=== PATIENT | female | born 1945 | race Caucasian/White ===

== ENCOUNTER 2017-12-28 08:36 | Inpatient (IN) | payer OTHER, SELFPAY ==
[2017-12-06 14:01] VITALS: BMI 51.5
[2017-12-28] VITALS (17 sets, daily range): BP systolic 92–132; BP diastolic 48–74; PULSE 67–101; RESP 8–20; TEMP 35.4–36.5; O2SAT 90–100; BMI 51.5
--- NOTE | 2017-12-28 06:00 | DI.RAD.S_ITS ---
PROCEDURE: XR KNEE RT 1TO2V INDICATIONS: prosthesis placement TECHNIQUE: 2 view(s) of the knee acquired. COMPARISON: SNO Outside Film, CR, XR KNEE 3 VIEWS RIGHT, 11/10/2017, 17:42. FINDINGS: Bones: Patient is status post knee joint arthroplasty. Hardware components are in expected positions. Visualized bony structures are intact. Soft tissues: Overlying postoperative changes are noted. IMPRESSION: Expected appearance following right knee arthroplasty. Dictated by: Betsy Pfeiffer M.D. on 12/28/2017 at 12:40 Approved by: Betsy Pfeiffer M.D. on 12/28/2017 at 12:41
[2017-12-28] MEDS: LACTATED RINGERS 1,000 ML 42 ML IV ×2 (09:23→11:42)
[2017-12-28] MEDS: CELECOXIB 200 MG CAPSULE PO (09:24)
[2017-12-28] MEDS: ACETAMINOPHEN 325 MG TABLET 975 MG PO (09:25)
[2017-12-28] MEDS: PREGABALIN 75 MG CAPSULE PO (09:25)
--- NOTE | 2017-12-28 09:28 | PM.PREOP ---
Pre-operative Note Interval Note Pre-op Check: Yes History & Physical Reviewed by Physician and Yes Exam Performed Changes: No
--- NOTE | 2017-12-28 09:28 | PM.OP.1 ---
Operative Date/Time/Diagnoses Date of procedure: 12/28/17 Time of procedure: 12:03 Pre-op diagnosis: Right knee osteoarthritis Post-op diagnosis: same Procedure & Clinicians Procedure: Right total knee arthroplasty Same procedure as scheduled: Yes Indications: The patient presents today for total knee arthroplasty after failure of conservative treatment. The nature of the procedure including the risks and benefits, alternatives, postoperative course and expected outcome were discussed and all questions answered. Consent was obtained. Operative site confirmed and marked. Surgeon: John Garvey Auto Inspector: Blas Marino Anesthesia Type: General, Spinal and Local Operative Notes Findings: Severe osteoarthritis with varus alignment. Closure Type: primary Specimen(s): none sent Implants & Drains: [employer] BCS: 4 femoral component, 3 tibial component, 10 mm BCS polyethylene tray and 29 x 9 mm round patella Applied: implant(s) Estimated Blood Loss (mL): 75 Blood products transfused: none Tourniquet time (min): 15 Procedure in detail: The patient was taken to the operative suite and placed under spinal anesthesia. The patient was given prophylactic antibiotics prior to surgery. The patient was also given tranexamic acid, 1 g, just prior to surgery for postoperative hemostasis. The lateral knee was prepped and the joint injected with 20 mL of 1% Lidocaine with epinephrine. The knee was then prepped and draped in usual sterile fashion. The leg was exsanguinated with an Esmarch dressing and the tourniquet raised to 250 torr. A 15 cm anterior incision was made. Next a medial trivector arthrotomy was made. The extensor mechanism was marked to ensure accurate repair. Initial exposing dissection was carried out medially and laterally. The knee was then extended and the patellar thickness was measured and a cut made removing approximately 9 mm of bone. The patella was then sized and drilled. Some excess lateral bone was excised and the patellofemoral ligament released. The knee was then flexed and the intramedullary femoral guide jeffrey placed. The distal femoral cut was made in 6? of valgus at the +0 position. The femoral size was measured and the appropriate cutting block was then placed and the anterior, posterior and chamfer cuts made. The extra medullary tibial alignment jeffrey was then placed along the anatomic axis of the tibia appropriating the normal slope. The guide was set to remove approximately 10 mm from the less affected lateral side. The proximal tibial cut was then made with an oscillating saw. All meniscus and bony debris was then removed. Flexion extension gaps were checked. No specific balancing was required other than routine removal of osteophytes in standard medial release. The soft tissues were then injected with a combination of 20 mL of half percent Marcaine with epinephrine and 20 mL of Exparel. The trial components were then placed. The knee went into full extension and flexion beyond 120?. There was good medial- lateral balance throughout motion with just slight increased laxity laterally both in flexion and extension. Patellar tracking was excellent. The trial components were removed and the knee was cleansed with Pulsavac irrigation and dried. The final components were cemented in with high viscosity vacuum mixed bone cement with antibiotics. The knee was held in extension and the patellar clamp until the cement had adequately cured. The knee was irrigated and inspected for any further debris. The knee was then irrigated with dilute Betadine solution. The extensor mechanism was closed with 5 interrupted #1 Vicryl sutures in 90 degrees of flexion. The joint was then injected with a combination of 1 g of tranexamic acid and 20 mL of quarter percent Marcaine with epinephrine. The subcutaneous tissue was closed with 2-0 Vicryl. The skin was closed with french and surgical adhesive. An Aquacell dressing and Kyle wrap were then applied. The patient tolerated the procedure well and was returned to recovery room in good condition. Complications: none Condition: stable Disposition: PACU Plan for aftercare: [facility] postoperative protocol for total knee arthroplasty.
[2017-12-28] MEDS: CEFAZOLIN 2 GM/100 ML FROZ.PIGGY IV ×2 (10:38→18:37)
[2017-12-28] MEDS: LIDOCAINE 1% W/EPI INJ 20 ML INJ (10:55)
[2017-12-28] MEDS: TRANEXAMIC ACID 1,000 MG VIAL 1000 MG INJ (10:59)
--- NOTE | 2017-12-28 11:08 | SUR.OPER ---
Supine on padded OR bed. Pillow under head, arms secured on padded armboards <90 degree abduction. Safety belt across torso. Non-operative leg secured with tape over blanket over lower leg. Operative leg secured in DeMayo/Aneesh positioner. Foam padded brace at thigh of operative leg.
[2017-12-28] MEDS: BUPIVACAINE 0.5% (PF) 10 ML, TRANEXAMIC ACID 1,000 MG, SODIUM CHLORIDE 0.9% 20 ML INJ (11:20)
[2017-12-28] MEDS: POVIDONE-IODINE 15 ML, SODIUM CHLORIDE 0.9% 250 ML TOP (11:20)
[2017-12-28] MEDS: BUPIVACAINE 0.5% W/ EPI (PF) 20 ML, BUPIVACAINE LIPOSOME 266 MG, SODIUM CHLORIDE 0.9% 2... INJ (11:31)
[2017-12-28] MEDS: ONDANSETRON 4 MG/2 ML INJ IV ×3 (12:56→21:32)
--- NOTE | 2017-12-28 14:00 | PC.ADMIT ---
[address], [address] Admission Note: Patient arrived from PACU at 1330 to room 204. Patient is alert and oriented. Oxygen sats 94-95% RA. Instructed to cough and deep breathe. RR 12 bpm. Sister, Marilyn, is in room. Denies pain. Numbness to feet reported from spinal, able to ankle wave with palpable pulses. Nauseated with 100 ml out of emesis after a sip of water. Instructed to avoid PO intake at this time, reports understanding. Aquacel dressing under LOPEZ wrap is C/D/I. Oriented to room and to bed/tv/call light controls. Bed alarm on. The patient,Lynda Booth,72 y/o, was given written information regarding hospital policies, unit procedures and contact persons. Patient's smoking status: Never smoker. Vital Signs - 8 hr 12/28/17 09:16 12/28/17 12:23 12/28/17 12:28 Temperature 97.1 F L 97.3 F L Pulse Rate 92 H 84 82 Respiratory Rate 18 15 10 L Blood Pressure 132/67 102/56 L 95/53 L Pulse Oximetry 93 93 92 12/28/17 12:33 12/28/17 12:38 12/28/17 12:53 Temperature Pulse Rate 79 101 H 76 Respiratory Rate 8 L 20 12 Blood Pressure 94/58 L 107/67 92/48 L Pulse Oximetry 95 90 L 96 12/28/17 13:03 12/28/17 13:18 Temperature Pulse Rate 70 68 Respiratory Rate 10 L 11 L Blood Pressure 96/50 L 95/52 L Pulse Oximetry 96 96
[2017-12-28] MEDS: METOCLOPRAMIDE 10 MG/2 ML INJ IV ×2 (14:47→19:46)
[2017-12-28] MEDS: LACTATED RINGERS 1,000 ML 125 ML IV ×2 (14:51→18:37)
--- NOTE | 2017-12-28 15:53 | PT.IPTN ---
Current Diagnoses Unilateral primary osteoarthritis, right knee (12/28/17) Surgery Performed Operation Date: 12/28/17 10:15 Actual Procedures p Total Knee Arthroplasty(Right) - John Garvey MD Physical Therapy Treatment Note M3 PT-IP Subjective Start: 12/28/17 15:52 Freq: NEEDED Status: Active Protocol: Document 12/28/17 15:52 DLM (Rec: 12/28/17 15:53 DLM [id number]) Subjective Physical Therapy Visit Type Notes Pt very nauseated and feeling dizzy when she moves her head. She does not feel ready to get up at this time. Physical Therapy Visit Comments Short Term Goals Be able to go home tomorrow with her Sister to help
[2017-12-29] VITALS (10 sets, daily range): BP systolic 95–126; BP diastolic 49–70; PULSE 73–86; RESP 16–18; TEMP 36.2–36.7; O2SAT 94–99
[2017-12-29] MEDS: CEFAZOLIN 2 GM/100 ML FROZ.PIGGY IV ×3 (03:19→19:59)
[2017-12-29] MEDS: METOCLOPRAMIDE 10 MG/2 ML INJ IV (03:39)
[2017-12-29] MEDS: LACTATED RINGERS 1,000 ML 125 ML IV (04:33)
--- NOTE | 2017-12-29 05:22 | PC.NURSE ---
Pt got up to the BSC and had n/v, ~125cc of emesis. Administered reglan. pt is now on 1L 94%. drsjanie cdi. denied pain. CMS+.
[2017-12-29] MEDS: LEVOTHYROXINE 125 MCG TABLET PO (06:33)
[2017-12-29 07:19] LABS: Hematocrit 34.6 % (36-46); Hemoglobin 11.4 g/dL (12.0-16.0)
--- NOTE | 2017-12-29 07:32 | PM.PNPO.1 ---
Subjective Date Patient Seen: 12/29/17 Time Patient Seen: 07:33 Interval history: Nausea vomiting overnight and this morning. Seems to be somewhat better over the last 3-4 hours. Patient was able to get some sleep. Denies shortness of breath or chest pain. Was able to get up with physical therapy late yesterday evening and walked around the room. Currently having minimal right knee pain. No fever chills. Exam Vital Signs (past 8 hours): - 12/29/17 04:33 Temperature 97.4 F L Pulse Rate 77 Respiratory Rate 16 Blood Pressure 126/70 Pulse Oximetry 99 Oxygen Delivery Method Nasal Cannula Oxygen Flow Rate 2 Narrative Exam Narrative: Patient resting comfortably in bed in no apparent distress. Right knee dressing is clean, dry and intact. Motor functions intact to the distal right lower extremity. Sensation grossly intact to light touch right lower extremity. Objective Labs Result Diagrams: 12/29/17 06:50 Labs: Laboratory Results - last 24 hr 12/29/17 06:50 Hgb 11.4 L Hct 34.6 L Assessment & Plan Post-op Postoperative Procedures Operation Date: 12/28/17 10:15 Actual Procedures Side Surgeon p Total Knee Arthroplasty Right John Garvey MD patient progressing as expected status post right total knee arthroplasty. Continue work on nausea. Mobilize with physical therapy. Possible discharge home later today or tomorrow. Patient does have her sister home and available to assist her upon discharge. Quality VTE Deep Vein Thrombosis/Pulmonary Embolism Present on Admission: No
[2017-12-29] MEDS: ASPIRIN EC 81 MG TABLET PO ×2 (08:25→20:00)
[2017-12-29] MEDS: ATORVASTATIN 20 MG TABLET PO (08:25)
[2017-12-29] MEDS: hydroCHLOROthiazide 25 MG TABLET 50 MG PO (08:25)
[2017-12-29] MEDS: ACETAMINOPHEN 325 MG TABLET 975 MG PO ×3 (08:25→20:00)
--- NOTE | 2017-12-29 09:09 | CM.IDA ---
Addendum entered by ANN Ying 12/29/17 15:35: Met w/pt this afternoon w/her sister Marilyn at bedside, permission given to continue. Pt went into great detail about her post operative course and stated she would be able to return home w/assist from her sister (who lives next door) once her pain was better managed. Marilyn agrees pt will be safe and all DME in place. Following closely in case needs change or concerns arise. PT: Home w/bariatric equipment and sister to assist. BENSON Original Note: Addendum entered by ANN Ying 12/29/17 12:05: Attempted assessment, PT trying to get pt up. Chart indicates pt is 5'4, 300 pounds. Progress could be slow, following closely. Original Note: PT Pending today. Following Closely. ANN Ying Discharge Planning/Care Management CM Discharge Assessment Start: 12/29/17 08:54 Freq: Status: Active Protocol: Document 12/29/17 08:55 BENSON (Rec: 12/29/17 09:09 BENSON [id number]) Discharge Planning Assessment Assigned Rotary Drier Feeder ANN Sin DPOA/Assigned Designee Name sister Campos Contact Information [phone] Advance Directives? No Advance Directives on File No History Provided By Patient Medical Record Prior Living Arrangements Apartment/Condo Household Members none Type of transporation used prior to Drives own vehicle admit Independent with ADL's Yes Is patient alert and oriented? Yes Comment All needed for safe DC home Patient/Family Preference OP PT Therapy OP OT Therapy Barriers to Discharge No Comment [place] path, home w/sister, likely today. Discharge Plan Home Transportation Arrangement Family Referrals Initiated None needed Additional Comment This UNIT EDUCATOR availble if DC needs or questions arise today, or if DC plan changes. Whiteboard Updated in Patient Room with Yes name and ext. # of Rotary Drier Feeder Review Status In Process
--- NOTE | 2017-12-29 12:47 | PT.IIE ---
Current Diagnoses Unilateral primary osteoarthritis, right knee (12/28/17) Surgery Performed Operation Date: 12/28/17 10:15 Actual Procedures p Total Knee Arthroplasty(Right) - John Garvey MD Surgical History (Last Updated 12/06/17 @ 14:25 by Hanh Landry, RN) History of mandibular surgery (Acute) Hx of breast augmentation (Acute) Hx of tubal ligation (Acute) Medical History (Last Updated 12/06/17 @ 14:27 by Hanh Landry RN) Easy bruisability (Acute) Edema (Acute) Esophageal spasm (Acute) HTN (hypertension) (Acute) Hyperlipidemia (Acute) Hypothyroidism (Acute) Keratosis (Acute) Laceration of thumb, left, with tendon involvement (Acute) Pneumonia (Acute) Elk teeth removed (Acute) Physical Therapy Inpatient Evaluation/Re-Eval M1 PT/OT-IP Prior Functional Status Start: 12/28/17 15:52 Freq: NEEDED Status: Active Protocol: Document 12/29/17 12:22 IJS (Rec: 12/29/17 12:47 IJS [id number]) Medical Review Prior Functional Status Medical History Reviewed Yes Diet/Fluid Consistency Regular Communication WNL Mobility and Gait Independent, uses cane or crutches to manage her knee pain, ambulates community distances Activities of Daily Living and IADL's Independent Prior Functional Level (Other details) Her Sister plans to help her after surgery Social History Household Members none Living Arrangements Apartment/Condo Home Environment Standard Height Toilet Home Equipment Front Wheel Walker Straight Cane Employment Status Retired Additional Social History Comment Plans to have daughter there at time of discharge. Also uses a rolling chair to mobilize in the home when her left hip or chronic low back is too painful. M2 PT-IP Current Condition Start: 12/28/17 15:52 Freq: NEEDED Status: Active Protocol: Document 12/29/17 12:22 IJS (Rec: 12/29/17 12:47 IJS [id number]) Physical Therapy Current Condition Current Condition Evaluation Date 12/29/17 Treatment Diagnosis Walking/gait disturbance Onset Date 12/28/17 Weight Bearing Status Weight Bearing Status Weight Bear as Tolerated M3 PT-IP Subjective Start: 12/28/17 15:52 Freq: NEEDED Status: Active Protocol: Document 12/29/17 12:22 IJS (Rec: 12/29/17 12:47 IJS [id number]) Subjective Physical Therapy Visit Type Type Initial Evaluation Visit Start Time 10:30 Visit Stop Time 11:10 Total Visit Minutes 40 Number of FRONT END ENGINEER Visits 0 Physical Therapy Visit Comments Patient Comments Has had motion sickness all her life and feels because she has not been as active that is why she is having trouble with nausia and woozy head. Patient Goals Return home with daughter and has scheduled outpatient appointments. Goal to get back to use of single point cane. Therapy Pain Assessment Pain When Pain Assessed During Mobility Pain Present Pain Present Pain Reported Location Back Intensity 8 Description With Movement Pain Behaviors Wincing Pain Management Techniques Apply Cold M4 PT-IP Mobility and Gait Start: 12/28/17 15:52 Freq: NEEDED Status: Active Protocol: Document 12/29/17 12:22 IJS (Rec: 12/29/17 12:47 IJ [id number]) PT-Bed Mobility Assessment Rolling Type of Rolling Roll to Left Level of Assist Standby Assistance Supine to Sit Supine to Sit Contact Guard Assistance Scooting Scooting to Edge of Bed Standby Assistance PT-Transfer Assessment Sit to and From Stand Sit to and from Stand Contact Guard Assistance Equipment Transfer Assistive Device Gait Belt Front Wheeled Walker Transfers Transfer Destination Bed Transfer Technique Stand Step Pivot Transfer Ability Level of Assist Contact Guard Assistance Comments Mobility Comments She had a borrowed standard FWW but she needs a wide bariatric walker. She will need one to go home so will need to get an order. Walked from bed to the bathroom then was a little woozy sat in recliner. I went and got a bariatric walker and took 3-4 steps forward and back with better pain control and posture. Gait Assessment Gait Gait Assistance Required: Contact Guard Assist Distance (Feet) 10 Able to Maintain Weight Bearing Status Yes During Gait Assistive Devices Assistive Device Gait Belt Front Wheeled Walker Orthotic/Prosthetic Devices or Brace: No Gait Deviations General Gait Pattern Antalgic Factors Limiting Gait Function Factors Limiting Gait Function Limited Range of Motion Pain Comments Gait Comments Did much better and felt more secure with larger walker. PT-Balance Assessment Sitting Balance and Reactions Static Sitting Balance Ability Normal Dynamic Sitting Balance Ability Normal Standing Balance and Reactions Static Standing Balance Ability Good Dynamic Standing Balance Ability Good M5 PT-IP Objective Assessments Start: 12/28/17 15:52 Freq: NEEDED Status: Active Protocol: Document 12/29/17 12:22 IJS (Rec: 12/29/17 12:47 [facility] [id number]) Orientation Orientation/Cognition Level of Alertness Alert Orientation Name Age Birthday Month Date Year Day of Week Place Situation Language Function Ability No Deficits Noted Safety Awareness Understands Safety Issues Memory Description No Deficits Noted Gross Range of Motion Upper Extremity ROM Assessment Within Functional Limits Lower Extremity ROM Assessment Right Impaired Impairments Full extension but lacking flexion as expected. 0 - 80 deg. supine. Strength Upper Extremity Strength Assessment Within Functional Limits Lower Extremity Strength Assessment Right Impaired Knee 4/5 Comments Strength Comments Good quad set, able to do TKE' s, abduction/adduction supine. Coordination Assessment Gross Coordination Gross Coordination WNL Sensation Assessment Sensation Gross Sensation WNL Light Touch Intact Proprioception (Position) Intact Muscle Tone Muscle Tone WNL Yes M6 PT-IP Treatment Start: 12/28/17 15:52 Freq: NEEDED Status: Active Protocol: Document 12/29/17 12:22 IJS (Rec: 12/29/17 12:47 [facility] [id number]) Physical Therapy Treatment Exercises Exercises Ankle Pumps Gluteal Sets Heel Slides Supine Hip Abduction Short Arc Quads Knee ROM Measurement 0 - 80 deg right Education Education Provided Post-Op Packet Equipment Issued Equipment Type and Company Will need wide bariatric walker. M7 PT-IP Assessment and Plan Start: 12/28/17 15:52 Freq: NEEDED Status: Active Protocol: Document 12/29/17 12:22 IJS (Rec: 12/29/17 12:47 [facility] [id number]) PT Summary Assessment and Plan Potential Rehabilitation Potential Good Status of Condition at Evaluation Stable Summary Impairments Pain ROM Strength Assessment Summary POD #1 doing well with mobility. Low blood pressure this a.m. and checked before treatment with supine 102/53, sitting at edge of bed 132/71. Some nausia after treatment but did not vomit. Head of bed up 30 deg. when got up. Goals Bed Mobility Goal Independent Transfer Goal Standby Assistance Gait Goal Standby Assistance Gait Distance 100' Days to Meet Goals 2 Frequency of Treatment Frequency Of Treatment Twice a Day Treatment Plan Physical Therapy Treatment Plan Bed Mobility Training Transfer Training Gait Training Therapeutic Exercise Recommendations To Nursing Amount of Assist Needed 1 Person Assist Discharge Recommendations PT Discharge Recommendations Home Equipment Needed for Home Before Wide bariateric walker 5'4 Discharge and 300#.
[2017-12-29] MEDS: INFLUENZA VACCINE 0.5 ML SYRINGE IM (14:39)
--- NOTE | 2017-12-29 15:55 | PT.IPTN ---
Current Diagnoses Unilateral primary osteoarthritis, right knee (12/28/17) Surgery Performed Operation Date: 12/28/17 10:15 Actual Procedures p Total Knee Arthroplasty(Right) - John Garvey MD Physical Therapy Treatment Note M2 PT-IP Current Condition Start: 12/28/17 15:52 Freq: NEEDED Status: Active Protocol: Document 12/29/17 15:55 [facility] (Rec: 12/29/17 17:36 [facility] [id number]) Physical Therapy Current Condition Current Condition Evaluation Date 12/29/17 Treatment Diagnosis Walking/gait disturbance Onset Date 12/28/17 Weight Bearing Status Weight Bearing Status Weight Bear as Tolerated M3 PT-IP Subjective Start: 12/28/17 15:52 Freq: NEEDED Status: Active Protocol: Document 12/29/17 15:55 RCC (Rec: 12/29/17 17:36 [facility] [email or web address]) Subjective Physical Therapy Visit Type Type Treatment Note Visit Start Time 15:30 Visit Stop Time 15:55 Total Visit Minutes 25 Number of SHIRT FOLDER Visits 0 Physical Therapy Visit Comments Patient Comments pt notes that she is feeling a little better, would like to walk farther. M4 PT-IP Mobility and Gait Start: 12/28/17 15:52 Freq: NEEDED Status: Active Protocol: Document 12/29/17 15:55 RCC (Rec: 12/29/17 17:36 [facility] [id number]) PT-Bed Mobility Assessment Supine to Sit Supine to Sit Minimal Assistance 1 Person Assistance Sit to Supine Sit to Supine Standby Assistance Scooting Scooting to Edge of Bed Minimal Assistance PT-Transfer Assessment Sit to and From Stand Sit to and from Stand Contact Guard Assistance Equipment Transfer Assistive Device Gait Belt Front Wheeled Walker Transfers Transfer Destination Bed Transfer Technique Stand Step Pivot Transfer Ability Level of Assist Contact Guard Assistance Gait Assessment Gait Gait Assistance Required: Standby Assistance Distance (Feet) 25 Assistive Devices Assistive Device Gait Belt Front Wheeled Walker Gait Deviations General Gait Pattern Antalgic Decreased Stride Length Decreased Feet Clearance Factors Limiting Gait Function Factors Limiting Gait Function Decreased Activity Tolerance Decreased Strength Pain Comments Gait Comments bariatric FWW M5 PT-IP Objective Assessments Start: 12/28/17 15:52 Freq: NEEDED Status: Active Protocol: Document 12/29/17 12:22 IJS (Rec: 12/29/17 12:47 IJS [id number]) Orientation Orientation/Cognition Level of Alertness Alert Orientation Name Age Birthday Month Date Year Day of Week Place Situation Language Function Ability No Deficits Noted Safety Awareness Understands Safety Issues Memory Description No Deficits Noted Gross Range of Motion Upper Extremity ROM Assessment Within Functional Limits Lower Extremity ROM Assessment Right Impaired Impairments Full extension but lacking flexion as expected. 0 - 80 deg. supine. Strength Upper Extremity Strength Assessment Within Functional Limits Lower Extremity Strength Assessment Right Impaired Knee 4/5 Comments Strength Comments Good quad set, able to do TKE' s, abduction/adduction supine. Coordination Assessment Gross Coordination Gross Coordination WNL Sensation Assessment Sensation Gross Sensation WNL Light Touch Intact Proprioception (Position) Intact Muscle Tone Muscle Tone WNL Yes M6 PT-IP Treatment Start: 12/28/17 15:52 Freq: NEEDED Status: Active Protocol: Document 12/29/17 15:55 RCC (Rec: 12/29/17 17:36 [facility] [id number]) Physical Therapy Treatment Exercises Exercises Seated Knee Flexion/Extension M7 PT-IP Assessment and Plan Start: 12/28/17 15:52 Freq: NEEDED Status: Active Protocol: Document 12/29/17 15:55 RCC (Rec: 12/29/17 17:36 [facility] [id number]) PT Summary Assessment and Plan Summary Progress Towards Goals Progressing Toward Goals Assessment Summary Pt able to progress gait distance to 25 ft. She requires min assist for RLE management getting out of bed. Expect pt to continue to progress, but likely d/c on due to this date being first day of mobility for pt. She will require stair training prior to d/c. Goals Bed Mobility Goal Independent Transfer Goal Standby Assistance Gait Goal Standby Assistance Gait Distance 100' Days to Meet Goals 2 Frequency of Treatment Frequency Of Treatment Twice a Day Treatment Plan Physical Therapy Treatment Plan Bed Mobility Training Transfer Training Gait Training Therapeutic Exercise Other Recommendations and Next Treatment prog. gait, stair training Focus Recommendations To Nursing Amount of Assist Needed 1 Person Assist Discharge Recommendations PT Discharge Recommendations Home with Assistance Equipment Needed for Home Before [facility] walker 5'4 Discharge and 300#.
[2017-12-29] MEDS: IBUPROFEN 600 MG TABLET PO (17:20)
[2017-12-29] MEDS: OXYCODONE IR 5 MG TABLET PO (21:28)
[2017-12-30 00:06] VITALS: BP 123/52; PULSE 87; RESP 18; TEMP 36.7; O2SAT 92
[2017-12-30] MEDS: CEFAZOLIN 2 GM/100 ML FROZ.PIGGY IV (03:24)
[2017-12-30] MEDS: IBUPROFEN 600 MG TABLET PO (04:27)
[2017-12-30 04:39] VITALS: BP 136/67; PULSE 82; RESP 18; TEMP 36.6; O2SAT 95
[2017-12-30] MEDS: LEVOTHYROXINE 125 MCG TABLET PO (06:41)
[2017-12-30 07:00] VITALS: BP 121/69; PULSE 83; RESP 16; TEMP 36.8; O2SAT 96
--- NOTE | 2017-12-30 08:05 | PM.PNPO.1 ---
Subjective Date Patient Seen: 12/30/17 Time Patient Seen: 08:05 Interval history: Patient is postop day 2 status post right total knee replacement by Dr. Garvey. Patient says today the nausea has gotten better. She was able to eat a full meal yesterday. Has not ambulated much with physical therapy she still having a hard time getting in and out of bed due to her size. Has not had a bowel movement yet. Has more pain in the knee today. Feels she is not ready to go home yet. Exam Vital Signs (past 8 hours): - 12/30/17 00:06 12/30/17 04:39 Temperature 98.1 F 97.9 F Pulse Rate 87 82 Respiratory Rate 18 18 Blood Pressure 123/52 L 136/67 Pulse Oximetry 92 95 Fraction of Inspired Oxygen 21 Oxygen Delivery Method Room Air Oxygen Flow Rate 0 Narrative Exam Narrative: Patient in bed. Appears comfortable. Alert and orient x3. Right knee dressing clean dry and intact with an Kyle bandage over wrapped. 5/5 right ankle strength. Bilateral calf soft and nontender. Neurovascular status intact Objective Labs Result Diagrams: 12/29/17 06:50 Assessment & Plan Post-op Postoperative Procedures Operation Date: 12/28/17 10:15 Actual Procedures Side Surgeon p Total Knee Arthroplasty Right John Garvey MD Postop day 2. Patient is slow to ambulate. She did lose 1 day of physical therapy due to nausea postop day 1. Patient will work with Physical therapy today and getting in and out of bed safely. Stool softeners, MiraLax and milk of Mag are ordered for her to help with her constipation. Continue pain medication as needed. Any continue DVT prophylaxis with aspirin. Discharged home tomorrow. Quality VTE Deep Vein Thrombosis/Pulmonary Embolism Present on Admission: No
[2017-12-30] MEDS: ACETAMINOPHEN 325 MG TABLET 975 MG PO ×3 (08:13→22:18)
[2017-12-30] MEDS: ASPIRIN EC 81 MG TABLET PO ×2 (08:13→22:17)
[2017-12-30] MEDS: LISINOPRIL 10 MG TABLET PO (08:13)
[2017-12-30] MEDS: hydroCHLOROthiazide 25 MG TABLET 50 MG PO (08:13)
[2017-12-30] MEDS: ATORVASTATIN 20 MG TABLET PO (08:14)
[2017-12-30] MEDS: DOCUSATE 100 MG CAPSULE PO (08:33)
--- NOTE | 2017-12-30 10:24 | PC.NURSE ---
Pt reports pain controlled while lying in bed LOPEZ wrap removed and pt reports increased comfort as she felt it was too tight. Aquacel dressing CDI. Using IS as instructed. IV removed and pt taking percolone for pain control.
--- NOTE | 2017-12-30 11:55 | PT.IPTN ---
Current Diagnoses Unilateral primary osteoarthritis, right knee (12/28/17) Surgery Performed Operation Date: 12/28/17 10:15 Actual Procedures p Total Knee Arthroplasty(Right) - John Garvey MD Physical Therapy Treatment Note M2 PT-IP Current Condition Start: 12/28/17 15:52 Freq: NEEDED Status: Active Protocol: Document 12/29/17 15:55 RCC (Rec: 12/29/17 17:36 RCC [email or web address]) Physical Therapy Current Condition Current Condition Evaluation Date 12/29/17 Treatment Diagnosis Walking/gait disturbance Onset Date 12/28/17 Weight Bearing Status Weight Bearing Status Weight Bear as Tolerated M3 PT-IP Subjective Start: 12/28/17 15:52 Freq: NEEDED Status: Active Protocol: Document 12/30/17 11:50 GGD (Rec: 12/30/17 12:43 GGD [id number]) Subjective Physical Therapy Visit Type Type Treatment Note Visit Start Time 11:25 Visit Stop Time 11:50 Total Visit Minutes 25 Number of COLOR CHECKER Visits 1 Physical Therapy Visit Comments Patient Comments Pt states that she would like to get up and walk. Therapy Pain Assessment Pain When Pain Assessed At Rest Pain Present Pain Present Pain Reported Location Back Intensity 3 Scale Used Numeric (1 - 10) M4 PT-IP Mobility and Gait Start: 12/28/17 15:52 Freq: NEEDED Status: Active Protocol: Document 12/30/17 11:50 GGD (Rec: 12/30/17 12:43 GGD [id number]) PT-Bed Mobility Assessment Supine to Sit Supine to Sit Contact Guard Assistance 1 Person Assistance Bedrails Scooting Scooting to Edge of Bed Contact Guard Assistance PT-Transfer Assessment Sit to and From Stand Sit to and from Stand Contact Guard Assistance Equipment Transfer Assistive Device Gait Belt Front Wheeled Walker Transfers Transfer Destination Chair Toilet Gait Assessment Gait Gait Assistance Required: Standby Assistance Distance (Feet) 100 Assistive Devices Assistive Device Gait Belt Front Wheeled Walker Gait Deviations General Gait Pattern Antalgic Decreased Stride Length Decreased Feet Clearance Factors Limiting Gait Function Factors Limiting Gait Function Decreased Activity Tolerance Decreased Strength Pain Comments Gait Comments bariatric FWW M5 PT-IP Objective Assessments Start: 12/28/17 15:52 Freq: NEEDED Status: Active Protocol: Document 12/29/17 12:22 IJS (Rec: 12/29/17 12:47 IJS [id number]) Orientation Orientation/Cognition Level of Alertness Alert Orientation Name Age Birthday Month Date Year Day of Week Place Situation Language Function Ability No Deficits Noted Safety Awareness Understands Safety Issues Memory Description No Deficits Noted Gross Range of Motion Upper Extremity ROM Assessment Within Functional Limits Lower Extremity ROM Assessment Right Impaired Impairments Full extension but lacking flexion as expected. 0 - 80 deg. supine. Strength Upper Extremity Strength Assessment Within Functional Limits Lower Extremity Strength Assessment Right Impaired Knee 4/5 Comments Strength Comments Good quad set, able to do TKE' s, abduction/adduction supine. Coordination Assessment Gross Coordination Gross Coordination WNL Sensation Assessment Sensation Gross Sensation WNL Light Touch Intact Proprioception (Position) Intact Muscle Tone Muscle Tone WNL Yes M6 PT-IP Treatment Start: 12/28/17 15:52 Freq: NEEDED Status: Active Protocol: Document 12/30/17 11:50 GGD (Rec: 12/30/17 12:43 GGD [id number]) Physical Therapy Treatment Exercises Exercises Ankle Pumps Quad Sets Heel Slides Seated Knee Flexion/Extension Education Education Provided Safety M7 PT-IP Assessment and Plan Start: 12/28/17 15:52 Freq: NEEDED Status: Active Protocol: Document 12/30/17 11:50 GGD (Rec: 12/30/17 12:43 GGD [id number]) PT Summary Assessment and Plan Summary Assessment Summary Pt improving with mobility. she was able to progress gait. She was needed less assitst with bed mobility. Frequency of Treatment Frequency Of Treatment Twice a Day Treatment Plan Other Recommendations and Next Treatment prog. gait, stair training Focus Discharge Recommendations PT Discharge Recommendations Home with Assistance Equipment Needed for Home Before [facility] walker 5'4 Discharge and 300#.
--- NOTE | 2017-12-30 13:45 | PC.NURSE ---
Pt reported chest pain at 1300. EKG performed showing NAD. Pt given maalox which he reported had a good effect with chest pain/epigastric pain diminishing. Pt in no distress. States I think it was indigestion. I am not used to eating this kind of food. VSS.
[2017-12-30] MEDS: OXYCODONE IR 5 MG TABLET PO ×2 (13:57→22:18)
--- NOTE | 2017-12-30 15:20 | PT.IPTN ---
Current Diagnoses Unilateral primary osteoarthritis, right knee (12/28/17) Surgery Performed Operation Date: 12/28/17 10:15 Actual Procedures p Total Knee Arthroplasty(Right) - John Garvey MD Physical Therapy Treatment Note M2 PT-IP Current Condition Start: 12/28/17 15:52 Freq: NEEDED Status: Active Protocol: Document 12/29/17 15:55 RCC (Rec: 12/29/17 17:36 RCC [email or web address]) Physical Therapy Current Condition Current Condition Evaluation Date 12/29/17 Treatment Diagnosis Walking/gait disturbance Onset Date 12/28/17 Weight Bearing Status Weight Bearing Status Weight Bear as Tolerated M3 PT-IP Subjective Start: 12/28/17 15:52 Freq: NEEDED Status: Active Protocol: Document 12/30/17 15:20 GGD (Rec: 12/30/17 16:27 GGD [email or web address]) Subjective Physical Therapy Visit Type Type Treatment Note Visit Start Time 14:45 Visit Stop Time 15:20 Total Visit Minutes 35 Number of SCHOOL LUNCH MANAGER Visits 2 Physical Therapy Visit Comments Patient Comments Pt is willing to work with PT. Therapy Pain Assessment Pain When Pain Assessed At Rest Pain Present Pain Present Pain Reported Location Back Intensity 1 Scale Used Numeric (1 - 10) M4 PT-IP Mobility and Gait Start: 12/28/17 15:52 Freq: NEEDED Status: Active Protocol: Document 12/30/17 15:20 GGD (Rec: 12/30/17 16:27 GGD [email or web address]) PT-Bed Mobility Assessment Supine to Sit Supine to Sit Standby Assistance 1 Person Assistance Bedrails Sit to Supine Sit to Supine Standby Assistance Scooting Scooting to Edge of Bed Standby Assistance PT-Transfer Assessment Sit to and From Stand Sit to and from Stand Contact Guard Assistance Equipment Transfer Assistive Device Gait Belt Front Wheeled Walker Transfers Transfer Destination Bed Gait Assessment Gait Gait Assistance Required: Standby Assistance Distance (Feet) 80 Assistive Devices Assistive Device Gait Belt Front Wheeled Walker Gait Deviations General Gait Pattern Antalgic Decreased Stride Length Decreased Feet Clearance Factors Limiting Gait Function Factors Limiting Gait Function Decreased Activity Tolerance Decreased Strength Pain Comments Gait Comments bariatric FWW Stair Climbing Assessment Evaluation Level of Assist On Stairs Contact Guard Assistance Devices Stair Climbing Assistive Devices Left Railing Right Railing Technique/Endurance Stair Climbing Direction Ascend and Descend Stair Climbing Technique Step to Step Number of Steps Climbed 3 Query Text: Stair Climbing Set # Repetitions (reps) 1 M5 PT-IP Objective Assessments Start: 12/28/17 15:52 Freq: NEEDED Status: Active Protocol: Document 12/29/17 12:22 IJS (Rec: 12/29/17 12:47 IJS [id number]) Orientation Orientation/Cognition Level of Alertness Alert Orientation Name Age Birthday Month Date Year Day of Week Place Situation Language Function Ability No Deficits Noted Safety Awareness Understands Safety Issues Memory Description No Deficits Noted Gross Range of Motion Upper Extremity ROM Assessment Within Functional Limits Lower Extremity ROM Assessment Right Impaired Impairments Full extension but lacking flexion as expected. 0 - 80 deg. supine. Strength Upper Extremity Strength Assessment Within Functional Limits Lower Extremity Strength Assessment Right Impaired Knee 4/5 Comments Strength Comments Good quad set, able to do TKE' s, abduction/adduction supine. Coordination Assessment Gross Coordination Gross Coordination WNL Sensation Assessment Sensation Gross Sensation WNL Light Touch Intact Proprioception (Position) Intact Muscle Tone Muscle Tone WNL Yes M6 PT-IP Treatment Start: 12/28/17 15:52 Freq: NEEDED Status: Active Protocol: Document 12/30/17 15:20 GGD (Rec: 12/30/17 16:27 GGD [email or web address]) Physical Therapy Treatment Exercises Exercises Ankle Pumps Quad Sets Heel Slides Straight Leg Raises Education Education Provided Safety M7 PT-IP Assessment and Plan Start: 12/28/17 15:52 Freq: NEEDED Status: Active Protocol: Document 12/30/17 15:20 GGD (Rec: 12/30/17 16:27 GGD [email or web address]) PT Summary Assessment and Plan Summary Assessment Summary Pt improve slowly with mobility. She needed less assist with bed mobility. She was safe with stairs, but needed to pull with UE. She needed less cues for gait. Frequency of Treatment Frequency Of Treatment Twice a Day Treatment Plan Physical Therapy Treatment Plan Bed Mobility Training Transfer Training Gait Training Therapeutic Exercise Other Recommendations and Next Treatment prog. gait, stair training Focus Recommendations To Nursing Amount of Assist Needed 1 Person Assist Discharge Recommendations PT Discharge Recommendations Home with Assistance Equipment Needed for Home Before Wide bariateric walker 5'4 Discharge and 300#.
[2017-12-30 16:10] VITALS: BP 105/50; PULSE 82; RESP 20; TEMP 36.7; O2SAT 97
[2017-12-30 20:40] VITALS: BP 118/55; PULSE 80; RESP 16; TEMP 36.4; O2SAT 96
[2017-12-31] MEDS: ACETAMINOPHEN 325 MG TABLET 975 MG PO (05:06)
[2017-12-31] MEDS: OXYCODONE IR 5 MG TABLET PO (05:06)
[2017-12-31] MEDS: LEVOTHYROXINE 125 MCG TABLET PO (05:06)
[2017-12-31 05:10] VITALS: BP 112/67; PULSE 86; RESP 18; TEMP 36.8; O2SAT 93
[2017-12-31 07:45] VITALS: BP 109/51; PULSE 84; RESP 16; TEMP 36.8; O2SAT 96
[2017-12-31] MEDS: ATORVASTATIN 20 MG TABLET PO (09:07)
[2017-12-31] MEDS: ASPIRIN EC 81 MG TABLET PO (09:07)
[2017-12-31] MEDS: hydroCHLOROthiazide 25 MG TABLET 50 MG PO (09:07)
[2017-12-31] MEDS: LISINOPRIL 10 MG TABLET PO (09:08)
--- NOTE | 2017-12-31 09:09 | PM.DS.1 ---
History of Present Illness Date Patient Seen: 12/31/17 Time Patient Seen: 09:09 Chief complaint: [id number] Narrative: Details of the patient's H& P can be found in the electronic chart. Discharge Providers Date of admission: 12/28/17 08:36 Primary care physician: Tracy Johnson MD Consults: 12/28/17 13:40 Consult to Discharge Planning Routine Comment: Consult to Physical Therapy Evaluate & Treat Comment: Physician Instructions: postop TKA protocol Consult to Respiratory Therapy Evaluate & Treat Comment: Physician Instructions: Evaluate and treat 12/28/17 13:48 Consult to Respiratory Therapy Evaluate & Treat Comment: Physician Instructions: Evaluate and treat 12/30/17 14:06 Consult to Physical Therapy Evaluate & Treat Comment: Physician Instructions: Wide Bariateric FWW for home use Discharge provider: Sarah Demarco PA-C Summary Discharge Diagnosis: Right knee osteoarthritis Hospital Course: Patient was admitted and taken the operating room and she had a right total knee arthroplasty by Dr. Garvey. She recovered well as transfer to the floor for further care. Postop day 1 patient was having a lot of nausea. Postop day 2 nausea had resolved but the patient was slow to ambulate and had not had a bowel movement. By postop day 3 patient was ambulating well, not having nausea, able to have a bowel movement, eating and drinking well, urinating without difficulty. She was having a lot of right lower extremity swelling and a venous Doppler was performed which came back negative for any deep vein thrombosis. She was discharged home. She is a [facility] patient and has her discharge medications are ready. She will follow up in office next week. Status at Discharge Cognitive/behavioral status at discharge: Alert and orient x3 Functional status at discharge: uses cane/walker Time Spent with Patient Less than 30 minutes Exam Vital Signs (past 8 hours): - 12/31/17 05:10 12/31/17 07:45 Temperature 98.2 F 98.3 F Pulse Rate 86 84 Respiratory Rate 18 16 Blood Pressure 112/67 109/51 L Pulse Oximetry 93 96 Fraction of Inspired Oxygen 21 Oxygen Delivery Method Room Air Oxygen Flow Rate 0 Narrative Exam Narrative: Patient getting into bed. Alert and orient x3. Appears comfortable. Right knee with moderate swelling. Right calf swollen with ecchymosis behind calf. Discomfort with compression of the right calf. 5/5 right ankle strength. Left calf soft and nontender. Right knee dressing with 1 spot of dried blood. Objective Imaging Venous US: Radiologist's impression: [address] [address] Ultrasound Report Signed Patient: Lynda BoothMR#: [id number] : 4Acct:[id number] Age/Sex: 72 / FDate of Service: 12/31/17 Loc: HS886-2 Accession Number: [id number] Procedure: US periph venous low extrem rt Ordering Provider: Sarah Demarco P.A-C PROCEDURE: US PERIPH VENOUS LOW EXTREM RT INDICATIONS: POST OP EDEMA TECHNIQUE: Real-time imaging, as well as color and pulse Doppler interrogation, were performed of the lower extremity deep veins from the inguinal ligament to the popliteal fossa. COMPARISON: None. FINDINGS: The deep veins are normally compressible, and free of intraluminal thrombus. Color and pulse Doppler demonstrate normal phasic intraluminal flow. There is normal augmentation response to distal compression maneuver. IMPRESSION: No DVT in the right lower extremity. Dictated by: Gillian Tucker M.D. on 12/31/2017 at 11:04 Approved by: Gillian Tucker M.D. on 12/31/2017 at 11:04 Labs Result Diagrams: 12/29/17 06:50 Discharge Plan Discharge Plan Patient Disposition: Home Discharge comment: Start physical therapy. Continue home exercises. Stool softeners and fiber to help with constipation. Elevation of the leg to help with lower leg swelling. Discharge Med Rec/Prescriptions Prescriptions: New acetaminophen 325 mg Tablet 975 mg PO TID Qty: 60 RF: 0 aspirin 81 mg Tablet,Delayed Release (Dr/Ec) 81 mg PO BID Qty: 60 RF: 0 ibuprofen 600 mg Tablet 600 mg PO Q6HR PRN (Reason: As Needed For Fever/Mild Pain) Qty: 0 RF: 0 oxycodone 5 mg Tablet 5 mg PO Q3HR PRN (Reason: Pain, Moderate (4-6)) Qty: 0 RF: 0 Continue atorvastatin 20 mg Tablet 20 mg PO QAM RF: 0 hydrochlorothiazide 50 mg Tablet 50 mg PO DAILY RF: 0 famotidine [Pepcid AC] 20 mg Tablet 20 mg PO DAILY PRN (Reason: gi upset) RF: 0 lisinopril 10 mg Tablet 10 mg PO DAILY RF: 0 levothyroxine 125 mcg Capsule 125 mcg PO DAILY RF: 0 Discontinued aspirin [Aspir-81] 81 mg Tablet,Delayed Release (Dr/Ec) 81 mg PO DAILY RF: 0 ibuprofen [Advil] 200 mg Tablet 600 mg PO BEDTIME RF: 0 Follow up/Referrals: Tracy Johnson MD [Primary Care Provider] - John Garvey MD [Physician] - (Follow-up at scheduled visit time in place. Contact office with any issues or concerns.) Provider Discharge Instructions Diet: Diet as Tolerated Activity: Activity as tolerated. Ambulate with assistance of a walker/cane. Cold/Heat Therapy: Apply ice to the extremity as needed for pain and inflammation. Skin/Wound/Dressing Care Report to your healthcare provider any signs of infection, such as:: chills, fever, increased pain and unusual drainage Dressing: Keep dressing clean and dry intact. May shower. Visit Report/Discharge Packet Instructions: DI for Knee Replacement Visit Report Forms: Stroke Signs & Symptoms Discharge Data Primary Care Provider: Tracy Johnson Attending Provider: John Garvey Admit Date/Time: 12/28/17 08:36 Quality VTE Deep Vein Thrombosis/Pulmonary Embolism Present on Admission: No
--- NOTE | 2017-12-31 09:13 | P.DS_ITS ---
History of Present Illness Date Patient Seen: 12/31/17 Time Patient Seen: 09:09 Chief complaint: [id number] Narrative: Details of the patient's H& P can be found in the electronic chart. Discharge Providers Date of admission: 12/28/17 08:36 Primary care physician: Tracy Johnson MD Consults: 12/28/17 13:40 Consult to Discharge Planning Routine Comment: Consult to Physical Therapy Evaluate & Treat Comment: Physician Instructions: postop TKA protocol Consult to Respiratory Therapy Evaluate & Treat Comment: Physician Instructions: Evaluate and treat 12/28/17 13:48 Consult to Respiratory Therapy Evaluate & Treat Comment: Physician Instructions: Evaluate and treat 12/30/17 14:06 Consult to Physical Therapy Evaluate & Treat Comment: Physician Instructions: Wide Bariateric FWW for home use Discharge provider: Sarah Demarco PA-C Summary Discharge Diagnosis: Right knee osteoarthritis Hospital Course: Patient was admitted and taken the operating room and she had a right total knee arthroplasty by Dr. Garvey. She recovered well as transfer to the floor for further care. Postop day 1 patient was having a lot of nausea. Postop day 2 nausea had resolved but the patient was slow to ambulate and had not had a bowel movement. By postop day 3 patient was ambulating well, not having nausea, able to have a bowel movement, eating and drinking well, urinating without difficulty. She was having a lot of right lower extremity swelling and a venous Doppler was performed which came back negative for any deep vein thrombosis. She was discharged home. She is a [facility] patient and has her discharge medications are ready. She will follow up in office next week. Status at Discharge Cognitive/behavioral status at discharge: Alert and orient x3 Functional status at discharge: uses cane/walker Time Spent with Patient Less than 30 minutes Exam Vital Signs (past 8 hours): - 12/31/17 05:10 12/31/17 07:45 Temperature 98.2 F 98.3 F Pulse Rate 86 84 Respiratory Rate 18 16 Blood Pressure 112/67 109/51 L Pulse Oximetry 93 96 Fraction of Inspired Oxygen 21 Oxygen Delivery Method Room Air Oxygen Flow Rate 0 Narrative Exam Narrative: Patient getting into bed. Alert and orient x3. Appears comfortable. Right knee with moderate swelling. Right calf swollen with ecchymosis behind calf. Discomfort with compression of the right calf. 5/5 right ankle strength. Left calf soft and nontender. Right knee dressing with 1 spot of dried blood. Objective Imaging Venous US: Radiologist's impression: [address] [address] Ultrasound Report Signed Patient: Lynda BoothMR#: [id number] : 4Acct:[id number] Age/Sex: 72 / FDate of Service: 12/31/17 Loc: AM479-3 Accession Number: [id number] Procedure: US periph venous low extrem rt Ordering Provider: Sarah Demarco P.A-C PROCEDURE: US PERIPH VENOUS LOW EXTREM RT INDICATIONS: POST OP EDEMA TECHNIQUE: Real-time imaging, as well as color and pulse Doppler interrogation, were performed of the lower extremity deep veins from the inguinal ligament to the popliteal fossa. COMPARISON: None. FINDINGS: The deep veins are normally compressible, and free of intraluminal thrombus. Color and pulse Doppler demonstrate normal phasic intraluminal flow. There is normal augmentation response to distal compression maneuver. IMPRESSION: No DVT in the right lower extremity. Dictated by: Gillian Tucker M.D. on 12/31/2017 at 11:04 Approved by: Gillian Tucker M.D. on 12/31/2017 at 11:04 Labs Result Diagrams: 12/29/17 06:50 Discharge Plan Discharge Plan Patient Disposition: Home Discharge comment: Start physical therapy. Continue home exercises. Stool softeners and fiber to help with constipation. Elevation of the leg to help with lower leg swelling. Discharge Med Rec/Prescriptions Prescriptions: New acetaminophen 325 mg Tablet 975 mg PO TID Qty: 60 RF: 0 aspirin 81 mg Tablet,Delayed Release (Dr/Ec) 81 mg PO BID Qty: 60 RF: 0 ibuprofen 600 mg Tablet 600 mg PO Q6HR PRN (Reason: As Needed For Fever/Mild Pain) Qty: 0 RF: 0 oxycodone 5 mg Tablet 5 mg PO Q3HR PRN (Reason: Pain, Moderate (4-6)) Qty: 0 RF: 0 Continue atorvastatin 20 mg Tablet 20 mg PO QAM RF: 0 hydrochlorothiazide 50 mg Tablet 50 mg PO DAILY RF: 0 famotidine [Pepcid AC] 20 mg Tablet 20 mg PO DAILY PRN (Reason: gi upset) RF: 0 lisinopril 10 mg Tablet 10 mg PO DAILY RF: 0 levothyroxine 125 mcg Capsule 125 mcg PO DAILY RF: 0 Discontinued aspirin [Aspir-81] 81 mg Tablet,Delayed Release (Dr/Ec) 81 mg PO DAILY RF: 0 ibuprofen [Advil] 200 mg Tablet 600 mg PO BEDTIME RF: 0 Follow up/Referrals: Tracy Johnson MD [Primary Care Provider] - John Garvey MD [Physician] - (Follow-up at scheduled visit time in place. Contact office with any issues or concerns.) Provider Discharge Instructions Diet: Diet as Tolerated Activity: Activity as tolerated. Ambulate with assistance of a walker/cane. Cold/Heat Therapy: Apply ice to the extremity as needed for pain and inflammation. Skin/Wound/Dressing Care Report to your healthcare provider any signs of infection, such as:: chills, fever, increased pain and unusual drainage Dressing: Keep dressing clean and dry intact. May shower. Visit Report/Discharge Packet Instructions: DI for Knee Replacement Visit Report Forms: Stroke Signs & Symptoms Discharge Data Primary Care Provider: Tracy Johnson Attending Provider: John Garvey Admit Date/Time: 12/28/17 08:36 Quality VTE Deep Vein Thrombosis/Pulmonary Embolism Present on Admission: No
--- NOTE | 2017-12-31 10:29 | DI.US.S_ITS ---
PROCEDURE: US PERIPH VENOUS LOW EXTREM RT INDICATIONS: POST OP EDEMA TECHNIQUE: Real-time imaging, as well as color and pulse Doppler interrogation, were performed of the lower extremity deep veins from the inguinal ligament to the popliteal fossa. COMPARISON: None. FINDINGS: The deep veins are normally compressible, and free of intraluminal thrombus. Color and pulse Doppler demonstrate normal phasic intraluminal flow. There is normal augmentation response to distal compression maneuver. IMPRESSION: No DVT in the right lower extremity. Dictated by: Gillian Tucker M.D. on 12/31/2017 at 11:04 Approved by: Gillian Tucker M.D. on 12/31/2017 at 11:04
--- NOTE | 2017-12-31 10:30 | PT.IPTN ---
Current Diagnoses Unilateral primary osteoarthritis, right knee (12/28/17) Surgery Performed Operation Date: 12/28/17 10:15 Actual Procedures p Total Knee Arthroplasty(Right) - John Garvey MD Physical Therapy Treatment Note M2 PT-IP Current Condition Start: 12/28/17 15:52 Freq: NEEDED Status: Active Protocol: Document 12/29/17 15:55 RCC (Rec: 12/29/17 17:36 RCC [id number]) Physical Therapy Current Condition Current Condition Evaluation Date 12/29/17 Treatment Diagnosis Walking/gait disturbance Onset Date 12/28/17 Weight Bearing Status Weight Bearing Status Weight Bear as Tolerated M3 PT-IP Subjective Start: 12/28/17 15:52 Freq: NEEDED Status: Active Protocol: Document 12/31/17 10:30 GGD (Rec: 12/31/17 12:06 GGD [id number]) Subjective Physical Therapy Visit Type Type Treatment Note Visit Start Time 09:55 Visit Stop Time 10:30 Total Visit Minutes 35 Number of [employer] Visits 3 Physical Therapy Visit Comments Patient Comments Pt states she been up a lot today. Therapy Pain Assessment Pain When Pain Assessed During Mobility Pain Present Pain Present Pain Reported Location Back Intensity 5 Scale Used Numeric (1 - 10) M4 PT-IP Mobility and Gait Start: 12/28/17 15:52 Freq: NEEDED Status: Active Protocol: Document 12/31/17 10:30 GGD (Rec: 12/31/17 12:06 GGD [id number]) PT-Bed Mobility Assessment Sit to Supine Sit to Supine Standby Assistance Scooting Scooting to Edge of Bed Standby Assistance PT-Transfer Assessment Sit to and From Stand Sit to and from Stand Contact Guard Assistance Equipment Transfer Assistive Device Gait Belt Front Wheeled Walker Transfers Transfer Destination Bed Gait Assessment Gait Gait Assistance Required: Standby Assistance Distance (Feet) 100 Assistive Devices Assistive Device Gait Belt Front Wheeled Walker Gait Deviations General Gait Pattern Antalgic Decreased Stride Length Decreased Feet Clearance Factors Limiting Gait Function Factors Limiting Gait Function Decreased Activity Tolerance Decreased Strength Pain Comments Gait Comments Pt needed standing rest breaks , due to back pain. M5 PT-IP Objective Assessments Start: 12/28/17 15:52 Freq: NEEDED Status: Active Protocol: Document 12/29/17 12:22 IJS (Rec: 12/29/17 12:47 IJS [id number]) Orientation Orientation/Cognition Level of Alertness Alert Orientation Name Age Birthday Month Date Year Day of Week Place Situation Language Function Ability No Deficits Noted Safety Awareness Understands Safety Issues Memory Description No Deficits Noted Gross Range of Motion Upper Extremity ROM Assessment Within Functional Limits Lower Extremity ROM Assessment Right Impaired Impairments Full extension but lacking flexion as expected. 0 - 80 deg. supine. Strength Upper Extremity Strength Assessment Within Functional Limits Lower Extremity Strength Assessment Right Impaired Knee 4/5 Comments Strength Comments Good quad set, able to do TKE' s, abduction/adduction supine. Coordination Assessment Gross Coordination Gross Coordination WNL Sensation Assessment Sensation Gross Sensation WNL Light Touch Intact Proprioception (Position) Intact Muscle Tone Muscle Tone WNL Yes M6 PT-IP Treatment Start: 12/28/17 15:52 Freq: NEEDED Status: Active Protocol: Document 12/31/17 10:30 GGD (Rec: 12/31/17 12:06 GGD [id number]) Physical Therapy Treatment Exercises Exercises Seated Knee Flexion/Extension Education Education Provided Safety Equipment Issued Equipment Type and Company Wide Subtext walker M7 PT-IP Assessment and Plan Start: 12/28/17 15:52 Freq: NEEDED Status: Active Protocol: Document 12/31/17 10:30 GGD (Rec: 12/31/17 12:06 GGD [id number]) PT Summary Assessment and Plan Summary Assessment Summary Pt need cues for mobility. She wanted assist with LE, but after encourangement she was able to sit to supine with SBA . She had increase in back pain with gait. Frequency of Treatment Frequency Of Treatment Twice a Day Treatment Plan Physical Therapy Treatment Plan Bed Mobility Training Transfer Training Gait Training Therapeutic Exercise Other Recommendations and Next Treatment prog. gait, stair training Focus Recommendations To Nursing Amount of Assist Needed 1 Person Assist Discharge Recommendations PT Discharge Recommendations Home with Assistance
--- NOTE | 2017-12-31 12:14 | PC.NURSE ---
Pt discharged. Doppler study of RLE showed no DVT. Given paperwork and pt taken out to private vehicle. Pt expressed appreciation of care given.
== END 2017-12-31 12:15 | disposition home or self-care (01) | DRG 470 ==
PROVIDERS: Admitting Provider Orthopaedic Surgery; PCP Student in an Organized Health Care Education/Training Program; Visit Provider Orthopaedic Surgery
PROC: 0SRC0JZ Replacement of Right Knee Joint with Synthetic Substitute, Open Approach (ICD-10-PCS; CPT 27447; principal; 2017-12-28 10:15)
DX: M17.11 Unilateral primary osteoarthritis, right knee (principal); Z68.43 Body mass index [BMI] 50.0-59.9, adult; I10 Essential (primary) hypertension; E03.9 Hypothyroidism, unspecified; E66.01 Morbid (severe) obesity due to excess calories; R32 Unspecified urinary incontinence; R11.2 Nausea with vomiting, unspecified; K59.00 Constipation, unspecified
CPT/HCPCS: 73560; 85014; 85018; 90471; 90656; 93971; 94760; 94762; 97110; 97116; 97161; 97530; C1776; C9290; J0690; J1100; J2250; J2274; J2405; J2704; J2765; J3010; Q2038